=== PATIENT | male | born 1965 | race African-American/Black ===

== ENCOUNTER 2018-07-29 14:31 | Inpatient (IN) | payer MEDICARE, MEDICAID ==
[~2018-07-29] VITALS: Ht 177.8 cm; Wt 101.5 kg
[~2018-07-29 14:31] MED LIST: BUSP15 PO; DIVA-78 PO; PHEN100C23 PO; QUET200T PO; TRAZ150 PO
[2018-07-29 15:44] LABS: GLUCOSE,POINT OF CARE 111 MG/DL (70-110)
[2018-07-29] MEDS ORDERED: DORZ10DR18 OU (15:46)
[2018-07-29] MEDS ORDERED: LEVO100 PO (15:46)
[2018-07-29] MEDS ORDERED: LISI-662 PO (15:46)
[2018-07-29] MEDS ORDERED: ARIP10TA8 PO (15:46)
[2018-07-29] MEDS ORDERED: [UNRECOGNIZED DRUG - CODE] OU (15:46)
[2018-07-29] MEDS ORDERED: QUET200T PO (15:46)
[2018-07-29 15:59] LABS: BASOPHILS % (AUTO) 0.5 % (0.0-2.0); EOSINOPHILS % (AUTO) 2.2 % (1.0-6.0); HEMATOCRIT 42.6 % (41-53); HEMOGLOBIN 14.1 g/dL (13.5-17.5); LYMPHOCYTES # (AUTO) 1.8 K/uL (1.0-4.8); LYMPHOCYTES % (AUTO) 36.1 % (22.0-44.0); MEAN CORPUSCULAR HEMOGLOBIN 26.9 pg (26.0-34.0); MEAN CORPUSCULAR VOLUME 81 fL (80-100); MONOCYTES # (AUTO) 0.6 K/uL (0.1-1.0); MONOCYTES % (AUTO) 12.1 % (2.0-9.0); NEUTROPHILS # (AUTO) 2.4 K/uL (1.8-7.7); NEUTROPHILS % (AUTO) 49.1 % (40.0-70.0); PLATELET COUNT (AUTO) 237 K/uL (150-450); RED BLOOD CELL COUNT(AUTO) 5.23 MIL/uL (4.50-5.90)
[2018-07-29 16:11] LABS: AMPHET/METH SCREEN,URINE NEGATIVE (NEGATIVE); BARBITURATE SCREEN, URINE NEGATIVE (NEGATIVE); BENZODIAZEPINES SCREEN,URINE NEGATIVE (NEGATIVE); CANNABINOID SCREEN,URINE NEGATIVE (NEGATIVE); COCAINE SCREEN,URINE NEGATIVE (NEGATIVE); METHADONE SCREEN, URINE NEGATIVE (NEGATIVE); OPIATE SCREEN,URINE NEGATIVE (NEGATIVE)
[2018-07-29 16:13] LABS: PHENCYCLIDINE SCREEN,URINE NEGATIVE (NEGATIVE)
[2018-07-29 16:28] LABS: ALANINE AMINOTRANSFERASE 55 U/L (12-78); ALKALINE PHOSPHATASE 88 U/L (46-116); ANION GAP 10 mmol/L (8-16); ASPARTATE AMINOTRANSFERASE 29 U/L (15-37); BILIRUBIN,TOTAL 0.4 mg/dL (0.1-1.0); CALCIUM, TOTAL 8.9 mg/dL (8.8-10.5); CARBON DIOXIDE 24 mmol/L (22-29); CHLORIDE 104 mmol/L (98-107); CREATININE 1.12 mg/dL (0.60-1.30); GLOMERULAR FILTR. RATE CALC > 60 mL/min (>60); GLUCOSE,RANDOM 97 mg/dL (70-110); POTASSIUM 3.7 mmol/L (3.5-5.1); SODIUM SERUM 138 mmol/L (136-145); UREA NITROGEN, BLOOD 15 mg/dL (7-18)
[2018-07-29] MEDS ORDERED: HydrOXYzine PAMOATE 50 MG CAPSULE PO PRN (16:45)
[2018-07-29] MEDS ORDERED: ChlorproMAZINE HCL 25 MG TABLET PO PRN (16:45)
[2018-07-29] MEDS ORDERED: ZOLPIDEM TARTRATE 10 MG TABLET PO PRN (16:45)
[2018-07-29] MEDS: BusPIRone HCL 15 MG TABLET PO SCH (18:45)
[2018-07-29 19:43] VITALS: BP 134/78
[2018-07-29] MEDS ORDERED: PETROLATUM,WHITE 28 GM JELLY TP PRN (20:30)
[2018-07-29] MEDS ORDERED: ONDANSETRON HCL 4 MG TABLET PO PRN (20:30)
[2018-07-29] MEDS ORDERED: CloNIDine HCL 0.1 MG TABLET PO PRN (20:30)
[2018-07-29] MEDS ORDERED: IBUPROFEN 400 MG TABLET PO PRN (20:30)
[2018-07-29] MEDS ORDERED: DOCUSATE SODIUM 100 MG CAPSULE PO PRN (20:30)
[2018-07-29] MEDS ORDERED: MAG HYDROX/AL HYDROX/SIMETH ES 30 ML SUSPENSION UDCUP PO PRN (20:30)
[2018-07-29] MEDS ORDERED: NICOTINE 14 MG/24 HOUR PATCH TD PRN (20:30)
[2018-07-29] MEDS ORDERED: MAGNESIUM HYDROXIDE SUSPENSION 30 ML UDCUP PO PRN (20:30)
[2018-07-29] MEDS ORDERED: GuaiFENesin/D-METHORPHAN [SUGAR-FREE] 200-20MG/10 ML SYRUP UDCUP PO PRN (20:30)
[2018-07-29] MEDS ORDERED: LOPERAMIDE HCL 2 MG CAPSULE PO PRN (20:30)
[2018-07-29] MEDS ORDERED: ACETAMINOPHEN 325 MG TABLET PO PRN (20:30)
[2018-07-29] MEDS ORDERED: ALBUTEROL SULFATE HFA 90 MCG/PUFF 8 GM INHALER IH PRN (20:30)
[2018-07-29] MEDS: ARIPiprazole 10 MG TABLET PO SCH (20:53)
[2018-07-29] MEDS ORDERED: ChlorproMAZINE HCL 100 MG TABLET PO PRN (21:00)
[2018-07-30 06:18] LABS: BASOPHILS % (AUTO) 0.4 % (0.0-2.0); EOSINOPHILS % (AUTO) 2.4 % (1.0-6.0); HEMATOCRIT 42.9 % (41-53); LYMPHOCYTES % (AUTO) 41.3 % (22.0-44.0); MEAN CORPUSCULAR HGB CONC 32.6 G/dL (31.0-37.0); MEAN CORPUSCULAR VOLUME 83 fL (80-100); MONOCYTES # (AUTO) 0.7 K/uL (0.1-1.0); MONOCYTES % (AUTO) 14.1 % (2.0-9.0); NEUTROPHILS # (AUTO) 2.1 K/uL (1.8-7.7); NEUTROPHILS % (AUTO) 41.8 % (40.0-70.0); PLATELET COUNT (AUTO) 228 K/uL (150-450); RED BLOOD CELL COUNT(AUTO) 5.18 MIL/uL (4.50-5.90); RED CELL DISTRIBUTION WIDTH 15.3 % (11.5-14.5)
[2018-07-30 06:41] LABS: HEMOGLOBIN A1C 6.4 % (4.5-6.2)
[2018-07-30 06:50] LABS: ALANINE AMINOTRANSFERASE 51 U/L (12-78); ALBUMIN 3.5 g/dL (3.4-5.0); ALKALINE PHOSPHATASE 81 U/L (46-116); ANION GAP 8 mmol/L (8-16); ASPARTATE AMINOTRANSFERASE 26 U/L (15-37); BILIRUBIN,TOTAL 0.6 mg/dL (0.1-1.0); CALCIUM, TOTAL 8.4 mg/dL (8.8-10.5); CARBON DIOXIDE 27 mmol/L (22-29); CHLORIDE 107 mmol/L (98-107); CHOL/HDL RATIO 5.4 (4.2-7.3); CHOLESTEROL 188 mg/dL (131-200); CREATININE 1.18 mg/dL (0.60-1.30); GLOMERULAR FILTR. RATE CALC > 60 mL/min (>60); GLUCOSE,RANDOM 99 mg/dL (70-110); HDL CHOLESTEROL 35 mg/dL (40-60); LDL CHOL (CALC.) 138 mg/dL (0-130); POTASSIUM 4.4 mmol/L (3.5-5.1); SODIUM SERUM 142 mmol/L (136-145); THYROID STIMULATING HORMONE 1.22 uIU/mL (0.36-3.74); TOTAL PROTEIN, SERUM 7.1 g/dL (6.4-8.2); TRIGLYCERIDES 77 mg/dL (15-150)
[2018-07-30 07:00] LABS: UREA NITROGEN, BLOOD 14 mg/dL (7-18)
[2018-07-30 08:00] VITALS: BP 148/95
[2018-07-30] MEDS: BusPIRone HCL 15 MG TABLET PO SCH ×2 (09:12→17:59)
[2018-07-30] MEDS ORDERED: HydrOXYzine PAMOATE 50 MG CAPSULE PO PRN (11:45)
[2018-07-30] MEDS ORDERED: GuaiFENesin/D-METHORPHAN [SUGAR-FREE] 200-20MG/10 ML SYRUP UDCUP PO PRN (11:45)
[2018-07-30] MEDS ORDERED: LOPERAMIDE HCL 2 MG CAPSULE PO PRN (11:45)
[2018-07-30] MEDS ORDERED: PROMETHAZINE HCL 25 MG TABLET PO PRN (11:45)
[2018-07-30] MEDS ORDERED: TUBERCULIN, PURIFIED PROTEIN DERIVATIVE 5 TU/0.1 ML SYRINGE ID ONE (11:45)
[2018-07-30 17:18] VITALS: BP 127/70
[2018-07-30] MEDS: THIAMINE HCL 100 MG TABLET PO SCH (17:59)
[2018-07-30] MEDS: ARIPiprazole 10 MG TABLET PO SCH (20:52)
[2018-07-30] MEDS: DIVALPROEX SODIUM 500 MG ER TABLET PO SCH (20:52)
[2018-07-31] MEDS: LEVOTHYROXINE SODIUM 100 MCG TABLET PO SCH (06:30)
[2018-07-31] MEDS: LISINOPRIL 20 MG TABLET PO SCH (09:00)
[2018-07-31] MEDS: MULTIVITAMINS WITH MINERALS, THERAPEUTIC TABLET PO SCH (09:00)
[2018-07-31] MEDS: BusPIRone HCL 15 MG TABLET PO SCH ×2 (09:00→16:16)
[2018-07-31] MEDS: THIAMINE HCL 100 MG TABLET PO SCH ×2 (09:00→16:16)
[2018-07-31] MEDS: FOLIC ACID 1 MG TABLET PO SCH (09:01)
[2018-07-31] MEDS: TIMOLOL MALEATE 0.5% 5 ML OPHTHALMIC SOLUTION OU SCH (09:02)
[2018-07-31 09:46] VITALS: BP 140/88
[2018-07-31] MEDS: DORZOLAMIDE HCL 2% 10 ML OPHTHALMIC SOLUTION OU SCH (10:41)
[2018-07-31] MEDS ORDERED: QUEtiapine FUMARATE 25 MG TABLET PO PRN (16:30)
[2018-07-31 16:40] VITALS: BP 130/70
[2018-07-31] MEDS: DIVALPROEX SODIUM 500 MG ER TABLET PO SCH (20:19)
[2018-07-31] MEDS: QUEtiapine FUMARATE 200 MG TABLET PO SCH (20:20)
[2018-08-01] MEDS: LEVOTHYROXINE SODIUM 100 MCG TABLET PO SCH (06:21)
[2018-08-01 08:05] VITALS: BP 150/97
[2018-08-01] MEDS: BusPIRone HCL 15 MG TABLET PO SCH ×2 (09:10→16:45)
[2018-08-01] MEDS: LISINOPRIL 20 MG TABLET PO SCH (09:10)
[2018-08-01] MEDS: FOLIC ACID 1 MG TABLET PO SCH (09:10)
[2018-08-01] MEDS: THIAMINE HCL 100 MG TABLET PO SCH ×2 (09:10→16:45)
[2018-08-01] MEDS: MULTIVITAMINS WITH MINERALS, THERAPEUTIC TABLET PO SCH (09:10)
[2018-08-01] MEDS: TIMOLOL MALEATE 0.5% 5 ML OPHTHALMIC SOLUTION OU SCH (09:11)
[2018-08-01] MEDS: DORZOLAMIDE HCL 2% 10 ML OPHTHALMIC SOLUTION OU SCH (09:11)
[2018-08-01 16:30] VITALS: BP 113/71
[2018-08-01] MEDS: QUEtiapine FUMARATE 200 MG TABLET PO SCH (20:27)
[2018-08-01] MEDS: DIVALPROEX SODIUM 500 MG ER TABLET PO SCH (20:28)
[2018-08-02] MEDS: LEVOTHYROXINE SODIUM 100 MCG TABLET PO SCH (06:08)
[2018-08-02 08:25] VITALS: BP 128/75
[2018-08-02] MEDS: THIAMINE HCL 100 MG TABLET PO SCH ×2 (09:06→16:27)
[2018-08-02] MEDS: BusPIRone HCL 15 MG TABLET PO SCH ×2 (09:06→16:27)
[2018-08-02] MEDS: DORZOLAMIDE HCL 2% 10 ML OPHTHALMIC SOLUTION OU SCH (09:06)
[2018-08-02] MEDS: FOLIC ACID 1 MG TABLET PO SCH (09:06)
[2018-08-02] MEDS: TIMOLOL MALEATE 0.5% 5 ML OPHTHALMIC SOLUTION OU SCH (09:06)
[2018-08-02] MEDS: LISINOPRIL 20 MG TABLET PO SCH (09:06)
[2018-08-02] MEDS: MULTIVITAMINS WITH MINERALS, THERAPEUTIC TABLET PO SCH (09:06)
[2018-08-02 16:36] VITALS: BP 109/80
[2018-08-02] MEDS: QUEtiapine FUMARATE 200 MG TABLET PO SCH (20:31)
[2018-08-02] MEDS: DIVALPROEX SODIUM 500 MG ER TABLET PO SCH (20:31)
[2018-08-03] MEDS: LEVOTHYROXINE SODIUM 100 MCG TABLET PO SCH (06:59)
[2018-08-03 08:05] VITALS: BP 144/86
[2018-08-03] MEDS: LISINOPRIL 20 MG TABLET PO SCH (08:51)
[2018-08-03] MEDS: THIAMINE HCL 100 MG TABLET PO SCH ×2 (08:51→17:12)
[2018-08-03] MEDS: BusPIRone HCL 15 MG TABLET PO SCH ×2 (08:51→17:12)
[2018-08-03] MEDS: MULTIVITAMINS WITH MINERALS, THERAPEUTIC TABLET PO SCH (08:51)
[2018-08-03] MEDS: FOLIC ACID 1 MG TABLET PO SCH (08:51)
[2018-08-03] MEDS: DORZOLAMIDE HCL 2% 10 ML OPHTHALMIC SOLUTION OU SCH (08:52)
[2018-08-03] MEDS: TIMOLOL MALEATE 0.5% 5 ML OPHTHALMIC SOLUTION OU SCH (08:52)
[2018-08-03 17:25] VITALS: BP 116/64
[2018-08-03] MEDS: DIVALPROEX SODIUM 500 MG ER TABLET PO SCH (20:04)
[2018-08-03] MEDS: QUEtiapine FUMARATE 300 MG TABLET PO SCH (20:05)
[2018-08-04] MEDS: LEVOTHYROXINE SODIUM 100 MCG TABLET PO SCH (06:00)
[2018-08-04 06:24] LABS: APPEARANCE,URINE CLEAR (CLEAR); BILIRUBIN,URINE NEGATIVE (NEGATIVE); GLUCOSE, URINE (UA) NEGATIVE (NEGATIVE); KETONES,URINE NEGATIVE (NEGATIVE); LEUKOCYTE ESTERASE ,URINE SMALL (NEGATIVE); NITRATE,URINE NEGATIVE (NEGATIVE); OCCULT BLOOD,URINE NEGATIVE (NEGATIVE); PROTEIN,URINE NEGATIVE (NEGATIVE); UROBILINOGEN,URINE 0.2 mg/dL (<=1.0)
[2018-08-04 06:26] LABS: AMPHET/METH SCREEN,URINE NEGATIVE (NEGATIVE); BACTERIA,URINE None Seen /HPF (None Seen); BARBITURATE SCREEN, URINE NEGATIVE (NEGATIVE); BENZODIAZEPINES SCREEN,URINE NEGATIVE (NEGATIVE); CANNABINOID SCREEN,URINE NEGATIVE (NEGATIVE); COCAINE SCREEN,URINE NEGATIVE (NEGATIVE); METHADONE SCREEN, URINE NEGATIVE (NEGATIVE); OPIATE SCREEN,URINE NEGATIVE (NEGATIVE); RBC,URINE 0-2 /HPF (0-2); SQUAMOUS EPITHELIAL CELL,UR Rare /LPF (None Seen)
[2018-08-04 06:28] LABS: PHENCYCLIDINE SCREEN,URINE NEGATIVE (NEGATIVE)
[2018-08-04 08:57] VITALS: BP 144/83
[2018-08-04] MEDS: THIAMINE HCL 100 MG TABLET PO SCH ×2 (09:31→16:08)
[2018-08-04] MEDS: BusPIRone HCL 15 MG TABLET PO SCH ×2 (09:31→16:08)
[2018-08-04] MEDS: FOLIC ACID 1 MG TABLET PO SCH (09:31)
[2018-08-04] MEDS: MULTIVITAMINS WITH MINERALS, THERAPEUTIC TABLET PO SCH (09:32)
[2018-08-04] MEDS: LISINOPRIL 20 MG TABLET PO SCH (09:32)
[2018-08-04] MEDS: DORZOLAMIDE HCL 2% 10 ML OPHTHALMIC SOLUTION OU SCH (09:34)
[2018-08-04] MEDS: TIMOLOL MALEATE 0.5% 5 ML OPHTHALMIC SOLUTION OU SCH (09:34)
[2018-08-04 18:07] VITALS: BP 132/79
[2018-08-04] MEDS: QUEtiapine FUMARATE 300 MG TABLET PO SCH (20:17)
[2018-08-04] MEDS: DIVALPROEX SODIUM 500 MG ER TABLET PO SCH (20:17)
[2018-08-05] MEDS: LEVOTHYROXINE SODIUM 100 MCG TABLET PO SCH (06:16)
[2018-08-05] MEDS: BusPIRone HCL 15 MG TABLET PO SCH ×2 (09:16→16:03)
[2018-08-05] MEDS: LISINOPRIL 20 MG TABLET PO SCH (09:16)
[2018-08-05] MEDS: THIAMINE HCL 100 MG TABLET PO SCH ×2 (09:16→16:02)
[2018-08-05] MEDS: MULTIVITAMINS WITH MINERALS, THERAPEUTIC TABLET PO SCH (09:16)
[2018-08-05] MEDS: DORZOLAMIDE HCL 2% 10 ML OPHTHALMIC SOLUTION OU SCH (09:17)
[2018-08-05] MEDS: FOLIC ACID 1 MG TABLET PO SCH (09:17)
[2018-08-05] MEDS: TIMOLOL MALEATE 0.5% 5 ML OPHTHALMIC SOLUTION OU SCH (09:18)
[2018-08-05 09:57] VITALS: BP 155/108
[2018-08-05] MEDS ORDERED: BUSP15 PO (13:20)
[2018-08-05] MEDS ORDERED: DIVA500T52 PO (13:20)
[2018-08-05] MEDS ORDERED: QUET300T18 PO (13:20)
[2018-08-05] MEDS ORDERED: DORZ210OS OU (15:01)
== END 2018-08-05 16:15 | DRG 885 ==
LOC: EMS 14:33 → 3EI 17:33 → UNDOADMIN 17:33 → 3EI 17:34
PROVIDERS: ADMIT Psychiatry & Neurology Psychiatry; ATTEND Psychiatry & Neurology Psychiatry
DX: F25.9 Schizoaffective disorder, unspecified (principal); R45.851 Suicidal ideations; E03.9 Hypothyroidism, unspecified; E11.42 Type 2 diabetes mellitus with diabetic polyneuropathy; F17.210 Nicotine dependence, cigarettes, uncomplicated; H40.9 Unspecified glaucoma; I10 Essential (primary) hypertension; R56.9 Unspecified convulsions; Z59.0 Homelessness; Z65.3 Problems related to other legal circumstances; Z91.19 Patient's noncompliance with other medical treatment and regimen; Z79.899 Other long term (current) drug therapy
CPT/HCPCS: 80307; 83036; 84443; 87086; G0480

== ENCOUNTER 2019-04-29 17:01 | Inpatient (IN) | payer MEDICARE, MEDICAID ==
[~2019-04-29] VITALS: Ht 177.8 cm; Wt 100.0 kg
[~2019-04-29 17:01] MED LIST changes: -DIVA-78 PO; +DIVA500T52 PO; +DORZ210OS OU; +LEVO100 PO; +LISI-662 PO; -PHEN100C23 PO; -QUET200T PO; +QUET300T18 PO; -TRAZ150 PO; +[UNRECOGNIZED DRUG - CODE] OU
[2019-04-29 17:26] LABS: GLUCOSE,POINT OF CARE 111 MG/DL (70-110)
[2019-04-29 18:31] LABS: BASOPHILS % (AUTO) 0.6 % (0.0-2.0); EOSINOPHILS % (AUTO) 3.7 % (1.0-6.0); HEMOGLOBIN 13.5 g/dL (13.5-17.5); LYMPHOCYTES # (AUTO) 2.2 K/uL (1.0-4.8); MEAN CORPUSCULAR HEMOGLOBIN 27.3 pg (26.0-34.0); MEAN CORPUSCULAR HGB CONC 33.1 G/dL (31.0-37.0); MEAN CORPUSCULAR VOLUME 83 fL (80-100); MONOCYTES # (AUTO) 0.7 K/uL (0.1-1.0); MONOCYTES % (AUTO) 12.5 % (2.0-9.0); NEUTROPHILS # (AUTO) 2.7 K/uL (1.8-7.7); NEUTROPHILS % (AUTO) 45.2 % (40.0-70.0); PLATELET COUNT (AUTO) 249 K/uL (150-450); RED BLOOD CELL COUNT(AUTO) 4.97 MIL/uL (4.50-5.90); RED CELL DISTRIBUTION WIDTH 16.3 % (11.5-14.5)
[2019-04-29 18:48] LABS: ANION GAP 6 mmol/L (8-16); CALCIUM, TOTAL 9.1 mg/dL (8.8-10.5); CARBON DIOXIDE 29 mmol/L (22-29); CHLORIDE 103 mmol/L (98-107); CREATININE 1.12 mg/dL (0.60-1.30); GLOMERULAR FILTR. RATE CALC > 60 mL/min (>60); GLUCOSE,RANDOM 95 mg/dL (70-110); POTASSIUM 3.9 mmol/L (3.5-5.1); SODIUM SERUM 138 mmol/L (136-145); UREA NITROGEN, BLOOD 10 mg/dL (7-18)
[2019-04-29 19:00] LABS: ALANINE AMINOTRANSFERASE 66 U/L (12-78); ALBUMIN 4.1 g/dL (3.4-5.0); ALKALINE PHOSPHATASE 112 U/L (46-116); ASPARTATE AMINOTRANSFERASE 26 U/L (15-37); BILIRUBIN,TOTAL 0.3 mg/dL (0.1-1.0); TOTAL PROTEIN, SERUM 8.2 g/dL (6.4-8.2)
[2019-04-29 19:14] LABS: VALPROIC ACID < 3 mcg/mL (50-100)
[2019-04-29] MEDS ORDERED: ZOLPIDEM TARTRATE 10 MG TABLET PO PRN (20:45)
[2019-04-29] MEDS ORDERED: HALOPERIDOL 5 MG TABLET PO PRN (20:45)
[2019-04-29] MEDS ORDERED: LORazepam 2 MG TABLET PO PRN (20:45)
[2019-04-29 21:58] LABS: GLUCOSE,POINT OF CARE 97 MG/DL (70-110)
[2019-04-29 22:10] VITALS: BP 147/90
[2019-04-29] MEDS ORDERED: PNEUMOCOCCAL VACCINE POLYVALENT 0.5 ML VIAL [PPSV23] IM ONE (22:30)
[2019-04-30] MEDS: LEVOTHYROXINE SODIUM 100 MCG TABLET PO SCH (06:44)
[2019-04-30 08:05] LABS: CHOL/HDL RATIO 6.1 (4.2-7.3)
[2019-04-30 08:48] VITALS: BP 133/83
[2019-04-30] MEDS ORDERED: TIMOLOL MALEATE 0.5% 5 ML OPHTHALMIC SOLUTION OU SCH (09:00)
[2019-04-30] MEDS: DORZOLAMIDE HCL 2% 10 ML OPHTHALMIC SOLUTION OU SCH (09:13)
[2019-04-30] MEDS: LISINOPRIL 20 MG TABLET PO SCH (09:14)
[2019-04-30] MEDS: BusPIRone HCL 15 MG TABLET PO SCH (16:23)
[2019-04-30 16:40] VITALS: BP 141/89
[2019-04-30] MEDS: DIVALPROEX SODIUM 500 MG ER TABLET PO SCH (20:31)
[2019-04-30] MEDS: QUEtiapine FUMARATE 300 MG TABLET PO SCH (21:00)
[2019-05-01] MEDS: LEVOTHYROXINE SODIUM 100 MCG TABLET PO SCH (07:01)
[2019-05-01] MEDS: BusPIRone HCL 15 MG TABLET PO SCH ×2 (08:43→16:28)
[2019-05-01] MEDS: DORZOLAMIDE HCL 2% 10 ML OPHTHALMIC SOLUTION OU SCH (08:44)
[2019-05-01] MEDS: LISINOPRIL 20 MG TABLET PO SCH (08:44)
[2019-05-01] MEDS: TIMOLOL MALEATE 0.5% 5 ML OPHTHALMIC SOLUTION OU SCH ×2 (08:55→16:28)
[2019-05-01 09:29] VITALS: BP 144/84
[2019-05-01 17:15] VITALS: BP 125/88
[2019-05-01] MEDS: DIVALPROEX SODIUM 500 MG ER TABLET PO SCH (20:29)
[2019-05-01] MEDS: QUEtiapine FUMARATE 300 MG TABLET PO SCH (20:33)
[2019-05-02] MEDS: LEVOTHYROXINE SODIUM 100 MCG TABLET PO SCH (06:06)
[2019-05-02] MEDS: LISINOPRIL 20 MG TABLET PO SCH (08:30)
[2019-05-02] MEDS: DORZOLAMIDE HCL 2% 10 ML OPHTHALMIC SOLUTION OU SCH (08:31)
[2019-05-02] MEDS: BusPIRone HCL 15 MG TABLET PO SCH ×2 (08:31→16:26)
[2019-05-02] MEDS: TIMOLOL MALEATE 0.5% 5 ML OPHTHALMIC SOLUTION OU SCH ×2 (08:31→16:26)
[2019-05-02 08:33] VITALS: BP 140/76
[2019-05-02 16:00] VITALS: BP 106/61
[2019-05-02] MEDS: DIVALPROEX SODIUM 500 MG ER TABLET PO SCH (20:21)
[2019-05-02] MEDS: QUEtiapine FUMARATE 100 MG TABLET PO SCH (20:22)
[2019-05-03 03:40] VITALS: BP 126/77
[2019-05-03] MEDS: LEVOTHYROXINE SODIUM 100 MCG TABLET PO SCH (06:42)
[2019-05-03] MEDS: LISINOPRIL 20 MG TABLET PO SCH (08:44)
[2019-05-03] MEDS: DORZOLAMIDE HCL 2% 10 ML OPHTHALMIC SOLUTION OU SCH (08:45)
[2019-05-03] MEDS: BusPIRone HCL 15 MG TABLET PO SCH ×2 (08:45→16:26)
[2019-05-03] MEDS: TIMOLOL MALEATE 0.5% 5 ML OPHTHALMIC SOLUTION OU SCH ×2 (08:45→16:27)
[2019-05-03 09:19] VITALS: BP 127/77
[2019-05-03 17:07] VITALS: BP 131/88
[2019-05-03] MEDS: DIVALPROEX SODIUM 500 MG ER TABLET PO SCH (20:23)
[2019-05-03] MEDS: QUEtiapine FUMARATE 100 MG TABLET PO SCH (20:23)
[2019-05-04] MEDS: LEVOTHYROXINE SODIUM 100 MCG TABLET PO SCH (06:43)
[2019-05-04 08:38] VITALS: BP 144/88
[2019-05-04] MEDS: TIMOLOL MALEATE 0.5% 5 ML OPHTHALMIC SOLUTION OU SCH ×2 (08:55→16:28)
[2019-05-04] MEDS: DORZOLAMIDE HCL 2% 10 ML OPHTHALMIC SOLUTION OU SCH (08:55)
[2019-05-04] MEDS: LISINOPRIL 20 MG TABLET PO SCH (08:55)
[2019-05-04] MEDS: BusPIRone HCL 15 MG TABLET PO SCH ×2 (08:55→16:29)
[2019-05-04] MEDS: DIVALPROEX SODIUM 500 MG ER TABLET PO SCH (20:10)
[2019-05-04] MEDS: QUEtiapine FUMARATE 100 MG TABLET PO SCH (20:10)
[2019-05-04 20:53] VITALS: BP 124/84
[2019-05-05] MEDS: LEVOTHYROXINE SODIUM 100 MCG TABLET PO SCH (07:08)
[2019-05-05 08:30] VITALS: BP 128/91
[2019-05-05] MEDS: TIMOLOL MALEATE 0.5% 5 ML OPHTHALMIC SOLUTION OU SCH ×2 (09:21→16:53)
[2019-05-05] MEDS: BusPIRone HCL 15 MG TABLET PO SCH ×2 (09:21→16:53)
[2019-05-05] MEDS: LISINOPRIL 20 MG TABLET PO SCH (09:21)
[2019-05-05] MEDS: DORZOLAMIDE HCL 2% 10 ML OPHTHALMIC SOLUTION OU SCH (09:21)
[2019-05-05 16:20] VITALS: BP 145/88
[2019-05-05] MEDS: DIVALPROEX SODIUM 500 MG ER TABLET PO SCH (20:37)
[2019-05-05] MEDS: QUEtiapine FUMARATE 100 MG TABLET PO SCH (20:37)
[2019-05-06] MEDS: LEVOTHYROXINE SODIUM 100 MCG TABLET PO SCH (07:25)
[2019-05-06] MEDS: DORZOLAMIDE HCL 2% 10 ML OPHTHALMIC SOLUTION OU SCH (09:04)
[2019-05-06] MEDS: BusPIRone HCL 15 MG TABLET PO SCH ×2 (09:04→16:48)
[2019-05-06] MEDS: TIMOLOL MALEATE 0.5% 5 ML OPHTHALMIC SOLUTION OU SCH ×2 (09:04→16:48)
[2019-05-06] MEDS: LISINOPRIL 20 MG TABLET PO SCH (09:04)
[2019-05-06 14:32] VITALS: BP 147/87
[2019-05-06] MEDS ORDERED: QUET100T PO (15:01)
== END 2019-05-06 17:00 | disposition home or self-care (01) | DRG 885 ==
LOC: EMS 17:02 → 3EX 20:30
PROVIDERS: ADMIT Psychiatry & Neurology Psychiatry; ATTEND Psychiatry & Neurology Psychiatry
DX: F25.9 Schizoaffective disorder, unspecified (principal); R45.851 Suicidal ideations; E78.5 Hyperlipidemia, unspecified; E11.40 Type 2 diabetes mellitus with diabetic neuropathy, unspecified; E03.9 Hypothyroidism, unspecified; G40.909 Epilepsy, unspecified, not intractable, without status epilepticus; H40.9 Unspecified glaucoma; I10 Essential (primary) hypertension
CPT/HCPCS: G0378; G0480

== ENCOUNTER → 2021-04-13 | Outpatient (CLI) | payer MEDICARE, OTHER ==
[~2021-04-13] MED LIST changes: +DIVA-80 PO; -DIVA500T52 PO; -LISI-662 PO; +LISI-894 PO; +QUET100T PO; -QUET300T18 PO
[2021-04-13 15:18] LABS: HEMOGLOBIN A1C 7.1 % (3.8-5.6)
[2021-04-13 16:02] LABS: ALANINE AMINOTRANSFERASE 71 U/L (12-78); ALBUMIN 3.9 g/dL (3.4-5.0); ALKALINE PHOSPHATASE 107 U/L (46-116); ASPARTATE AMINOTRANSFERASE 36 U/L (15-37); BILIRUBIN,TOTAL 0.3 mg/dL (0.1-1.0); CHOL/HDL RATIO 5.1 (4.2-7.3); CHOLESTEROL 193 mg/dL (131-200); GLUCOSE,RANDOM 94 mg/dL (70-110); HDL CHOLESTEROL 38 mg/dL (40-60); LDL CHOL (CALC.) 115 mg/dL (0-130); TOTAL PROTEIN, SERUM 8.3 g/dL (6.4-8.2); TRIGLYCERIDES 201 mg/dL (15-150)
[2021-04-13 16:06] LABS: VALPROIC ACID < 3 mcg/mL (50-100)
== END | disposition home or self-care (01) ==
LOC: LABPV 13:45
PROVIDERS: ATTEND Psychiatry & Neurology Psychiatry
DX: F25.1 Schizoaffective disorder, depressive type (principal)
CPT/HCPCS: 80061; 80076; 80164; 82947; 83036

== ENCOUNTER → 2021-08-03 | Outpatient (CLI) | payer MEDICARE, OTHER | END | disposition home or self-care (01) | LOC: LABMN 12:32 | PROVIDERS: ATTEND Psychiatry & Neurology Psychiatry | DX: F25.0 Schizoaffective disorder, bipolar type (principal) | CPT/HCPCS: 80164 ==